=== PATIENT | female | born 1960 | race Caucasian/White ===

== ENCOUNTER 2022-12-03 15:49 | Emergency (ER) | payer MEDICAID ==
[~2022-12-03] VITALS: Ht 162.6 cm; Wt 91.2 kg
[2022-12-03 16:10] VITALS: BP 142/84; PULSE 72; RESP 20; TEMP 97.4; O2SAT 96
[2022-12-03] MEDS ORDERED: FLUORESCEIN OPTH STRIP 1 MG OP ONE (16:45)
[2022-12-03] MEDS ORDERED: TETRACAINE HCL/PF 0.5% OPTH 4 ML BTL OP ONE (16:45)
[2022-12-03] MEDS ORDERED: TOMOMETER 1 DEV DEV MC ONE (16:59)
--- NOTE | 2022-12-03 18:24 | NUR ---
62 Y/O FEMALE BIB SELF, PATIENT PRESENTS TO ED WITH INCREASED EYE PAIN AND DISCOMFORT ON RIGHT EYE. PT STATES SHE WEARS READING GLASSES, BUT DENIES CONTACT LENS USE. PT STATES SHE WENT TO URGENT CARE TODAY AND WAS REFERRED TO COME TO ER FOR FURTHER EVALUATION. DENIES N/V/D; SKIN IS PINK/WARM/DRY; AAOX4 WITH EVEN AND STEADY GAIT; LUNGS CLEAR BL; HR EVEN AND REGULAR; PT DENIES ANY FEVER, CP, SOB, OR COUGH AT THIS TIME; PATIENT STATES PAIN OF 7/10 AT THIS TIME; VSS; PATIENT POSITIONED FOR COMFORT; HOB ELEVATED; BEDRAILS UP X2; BED DOWN. ER MD MADE AWARE OF PT STATUS. CALL LIGHT WITHIN REACH. PMH: HTN, DM2 NKA
[2022-12-03 19:17] VITALS: BP 142/84; PULSE 72; RESP 20; TEMP 97.4; O2SAT 96
--- NOTE | 2022-12-03 19:17 | NUR ---
Patient discharged with v/s stable. Written and verbal after care instructions given and explained. Patient verbalized understanding. Ambulatory with steady gait. All questions addressed prior to discharge. Advised to follow up with PMD.
--- NOTE | 2022-12-03 19:18 | NUR ---
The patient's care was reviewed and supervised by Brynn Chowdhury, RN, RN.
== END 2022-12-03 19:17 | disposition home or self-care (01) ==
LOC: MED 15:49
DX: H11.31 Conjunctival hemorrhage, right eye (principal); Z79.899 Other long term (current) drug therapy
CPT/HCPCS: 99284